=== PATIENT | female | born 1935 | race Caucasian/White ===

== ENCOUNTER 2018-06-02 10:46 | Day surgery (SDC) | payer OTHER ==
[2018-06-01 12:02] VITALS: BMI 26.1
[2018-06-02] MEDS ORDERED: LIDOCAINE VISCOUS 2% ORAL/TOP 20 ML UNIT-DOSE CUP ONE (12:11)
[2018-06-02 12:42] VITALS: TEMP 97.7
[2018-06-02 12:50] VITALS: PULSE 60
[2018-06-02 13:55] VITALS: BP 131/83
--- NOTE | 2018-06-02 14:03 | PROC ---
Cardioversion Risks and Benefits Explained: Yes Consent on Chart: Yes GILDA done prior to Cardioversion: Yes GILDA findings: No thrombus. Patient anticoagulated: Yes - Procedure Anesthesiologist present: Yes Medication given: propofol Joules delivered: 120 x1 Rhythm post cardioversion: sr Remarks: Pt tolerated procedure well, no complications.
--- NOTE | 2018-06-02 14:48 | EKG ---
Test Reason : Blood Pressure : / mmHG Vent. Rate : 070 BPM Atrial Rate : 070 BPM P-R Int : 110 ms QRS Dur : 142 ms QT Int : 498 ms P-R-T Axes : 179 -67 118 degrees QTc Int : 537 ms Atrial-sensed ventricular-paced rhythm ABNORMAL ECG WHEN COMPARED WITH ECG OF 03-SEP-2016 13:13, ELECTRONIC VENTRICULAR PACEMAKER HAS REPLACED SINUS RHYTHM Confirmed by ADWOA RUSHING, SIGIFREDO ([id number]) on 06/02/2018 2:48:03 PM Referred By: Scott Noble Confirmed By:SIGIFREDO ORONA MD
--- NOTE | 2018-06-15 13:16 | ECHO ---
Name: TROUBETZKOY, ANGELINA Exam:Transesophageal Echocardiogram Study Date: 06/02/2018 12:00 PM Age: 82 yrs Reason For Study: A-Fib Height: 66 in Weight: 160 lb BSA: 1.8 m2 Procedure: A 2D transesophageal echocardiogram with Doppler and color flow Doppler was performed. Informed conse nt for Transesophageal Echocardiogram, and use of a contrast agent as needed, was obtained prior to the proc edure. The patient was brought to the endoscopy suite in a fasting state. An intravenous line was placed. A topical anesthetic agent was used for oropharangeal anesthesia. A bite block was inserted. IV concious sedati on was administered using propafol. A multifrequency, multiplane transesopheageal echocardiographic endoscop e was inserted and manipulated in the standard fashion to achieve multiplane views. The transesophageal pro be was passed without difficulty. The usual views were obtained; basal, mid-esophageal, transgastric and aor tic views. The patient's vital signs, including blood pressure, heart rate, pulse oximetry and cardiac rh ythm were monitored throughout the procedure and remained stable. The patient tolerated the procedure well with out evidence of orophangeal or esophageal trauma. There were no complications. Left Ventricle The left ventricular size, thickness and function are normal. Right Ventricle The right ventricle is normal in size and function. There is a pacemaker lead in the right ventricle. Atria Normal left and right atrial size and function. No thrombus is detected in the left atrial appendage. There is a catheter/pacemaker lead seen in the right atrium. Mitral Valve There is moderate mitral regurgitation. Tricuspid Valve There is mild tricuspid regurgitation. Aortic Valve No hemodynamically significant valvular aortic stenosis. Mild aortic regurgitation. Pulmonic Valve There is no pulmonic valvular regurgitation. Great Vessels Normal aortic arch, descending and ascending aorta. Pericardium/Pluera There is no pericardial effusion. Interpretation Summary The left ventricular size, thickness and function are normal. The right ventricle is normal in size and function. There is a pacemaker lead in the right ventricle and atrium. There is moderate mitral regurgitation. There is mild tricuspid regurgitation. Mild aortic regurgitation. MD Scott Noble 06/15/2018 01:16 PM
== END 2018-06-02 13:55 | disposition home or self-care (01) ==
LOC: JOR 10:46 → JASU-ENDO 10:46
PROVIDERS: ATTEND Internal Medicine Cardiovascular Disease
PROC: 5A2204Z Restoration of Cardiac Rhythm, Single (ICD-10-PCS; 2018-06-02)
PROC: B246ZZ4 Ultrasonography of Right and Left Heart, Transesophageal (ICD-10-PCS; principal; 2018-06-02 11:45)
DX: I48.91 Unspecified atrial fibrillation (principal); I34.0 Nonrheumatic mitral (valve) insufficiency; Z95.0 Presence of cardiac pacemaker
CPT/HCPCS: 93005; 93010; 93312; 93325

== ENCOUNTER 2019-03-17 20:58 | Inpatient (IN) | payer OTHER ==
[2019-03-17 21:26] VITALS: BMI 25.8
[2019-03-17] MEDS ORDERED: SODIUM CHLORIDE 500 ML IV STA (21:54)
--- NOTE | 2019-03-17 21:54 | PDOC ---
History of Present Illness - General Chief Complaint: Injury Stated Complaint: FALL Time Seen by Provider: 03/17/19 21:27 History Source: Patient Exam Limitations: No Limitations - History of Present Illness Initial Comments: Luann Tiwari is an 83 yo F w a sig pmh of HTN, HLD, heart failure, CAD, and pacemaker who presents to the ER after she fell down onto her face. The patient was at a [employer] earlier today when she tripped on a small stair which she didn't see and faceplanted. She fell down onto her face, experienced a FOOSH injury of the right hand, landed on her right ribs and now has a significant amount of right rib pain, has right shoulder pain, scraped her right knee. The patient insists it was a mechanical fall and did not experience any LOC. She does take elliquis as a blood thinner for her A-Fib. She has experienced multiple episodes of nausea and 4 NBNB vomitting episodes since she arrived in the ED. EMS gave the patient 8 mg of morphine on route to the hospital. Patient was given 70 mcg of fentanyl, zofran, and offirmev in room 10 trauma bay. She arrived into the ER wearing a C-Collar. She has a laceration in her neck which is bleeding slowly. PCP: Dr. Pa Ku Hand Edger: Dr. Peña Allergies: amlodipine, olmesartan, quinine, codeine PSH: Lung resection/biopsy Social Hx: Former smoker 40+ years ago. Drinks recreationally. Denies illicit drug usage. Past History - Past Medical History Allergies/Adverse Reactions: Allergies Allergy/AdvReac Type Severity Reaction Status Date / Time amlodipine besylate Allergy Intermediate rash Verified 03/17/19 21:59 [From Tribenzor] olmesartan medoxomil Allergy Intermediate rash Verified 03/17/19 21:59 [From Tribenzor] quinine [Quinine] Allergy Verified 07/17/12 15:14 codeine AdvReac Verified 01/28/16 10:13 Home Medications: Ambulatory Orders Folic Acid 1 mg PO DAILY tablet 01/22/16 Apixaban [Eliquis] 5 mg PO BID 01/27/16 Glucosamine Sulfate Dipot Chlr [Glucosamine] 1,000 mg PO DAILY 01/28/16 Amiodarone HCl 100 mg PO DAILY tablet 12/28/16 Furosemide 40 mg PO BID tablet 12/28/16 Methotrexate Sodium [Methotrexate] 10 mg PO WEEKLY tablet 12/28/16 Metoprolol Succinate 75 mg PO BID 12/28/16 Nitroglycerin [Nitroglycerin Patch] 1 each TD DAILY 12/28/16 Pantoprazole Sodium 40 mg PO BID 12/28/16 Potassium Chloride 40 meq PO DAILY 12/28/16 Anemia: No Asthma: No Cancer: No Cardiac Disorders: Yes (ANGINA PECTORIS, AF) CVA: No COPD: No CHF: No Dementia: No Diabetes: No GI Disorders: Yes (PHYTOBEZOAR;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;OPIOID INDUCED GASTROPARESIS) Disorders: No HTN: Yes (EHB;PULMONARY HTN) Hypercholesterolemia: Yes Liver Disease: No Seizures: No Thyroid Disease: Yes - Surgical History Abdominal Surgery: No Appendectomy: No Cardiac Surgery: Yes (CARDIOVERSION) Cholecystectomy: No Lung Surgery: Yes (left lower lobectomy - BENIGN) Neurologic Surgery: No Orthopedic Surgery: No - Suicide/Smoking/Psychosocial Hx Smoking Status: No Smoking History: Never smoked Have you smoked in the past 12 months: No Number of Cigarettes Smoked Daily: 0 If you are a former smoker, when did you quit?: 23 YRS AGO Hx Alcohol Use: Yes (Socially) Drug/Substance Use Hx: No Substance Use Type: None Hx Substance Use Treatment: No Review of Systems - Review of Systems Able to Perform ROS?: Yes Comments:: CONSTITUTIONAL: Absent: fever, no chills, no fatigue EYES: Absent: visual changes ENT: Absent: ear pain, no sore throat CARDIOVASCULAR: Present: Chest pain Absent: no palpitations RESPIRATORY: Present: SOB Absent: cough GI: Present: Abdominal pain, nausea, vomiting Absent: no constipation, no diarrhea GENITOURINARY: Absent: dysuria, no frequency, no hematuria MUSKULOSKELETAL: Present: Back pain, arthralgia Absent: no myalgia SKIN: Absent: rash NEURO: Absent: headache *Physical Exam - Vital Signs Last Vital Signs Temp Pulse Resp BP Pulse Ox 97.7 F 60 18 161/75 95 03/17/19 21:17 03/17/19 21:17 03/17/19 21:17 03/17/19 21:03/17/19 21:20 - Physical Exam Comments: GENERAL: Patient is awake, alert and in moderate distress. Speech is clear and appropriate. HEAD: There is a 1 cm laceration right beow the chin. Patient has a bruise/hematoma on her right forehead. Multiple facial abrasians on her chin. HEENT: Pupils are equal round and reactive to light, extraocular movements are intact. No facial deformity. The forehead is tender around the bruise. The oropharynx is clear. NECK: The trachea is midline, there is no stridor. There is no midline cervical spine tenderness, full range of motion of neck. CHEST: The right ribs are very tender. No ecchymosis or abrasions. Equal chest wall expansion bilaterally. No flail segments. Lungs are clear to auscultation bilaterally. CARDIOVASCULAR: S1-S2, regular rate and rhythm. No murmurs or rubs. ABDOMEN: Soft, nontender, nondistended. Bowel sounds are normoactive. There is no abdominal or flank ecchymosis. BACK/PELVIS: There is no midline thoracic or lumbosacral spine tenderness or step-off. Pelvis is stable and nontender. EXTREMITIES: The right arm is extremely tender at the wrist and distal forearm. There appears to be multiple fractures. 2+ distal pulses throughout. The right shoulder is also mildly ttp but has full ROM. The right knee has an abrasion but no TTP. NEURO: Alert and oriented x3. Cranial nerves II through XII are intact. right arm strength limited secondary to pain. 5 out of 5 motor strength x3 extremities. No gross sensory deficits. SKIN: Multiple abrasions, 1 hematoma on forehead, 1 laceration on neck. PSYCH: Affect is appropriate Procedures - Laceration/Wound Repair Right Upper Neck Wound Length: to 2.5 cm Wound Explored: clean Wound's Depth, Shape: superficial Irrigated w/ Saline: Yes Betadine Prep: Yes Wound Debrided: minimal Wound Repaired With: Sutures Suture Size/Type: 5:0, proline Number of Sutures: 3 (simple sutures) Layer Closure: No Sterile Dressing Applied: Yes Splint Applied: No ED Treatment Course - LABORATORY CBC & Chemistry Diagram: 03/18/19 06:30 03/18/19 06:30 Medical Decision Making - Medical Decision Making Luann Tiwari is an 83 yo F w a sig pmh of HTN, HLD, heart failure, CAD, and pacemaker who presents to the ER after she fell down onto her face. The patient was at a [employer] earlier today when she tripped on a small stair which she didn't see and faceplanted. She fell down onto her face, experienced a FOOSH injury of the right hand, landed on her right ribs and now has a significant amount of right rib pain, has right shoulder pain, scraped her right knee. The patient insists it was a mechanical fall and did not experience any LOC. She does take elliquis as a blood thinner for her A-Fib. She has experienced multiple episodes of nausea and 4 NBNB vomitting episodes since she arrived in the ED. EMS gave the patient 8 mg of morphine on route to the hospital. Patient was given 70 mcg of fentanyl, zofran, and offirmev in room 10 trauma bay. She arrived into the ER wearing a C-Collar. She has a laceration in her neck which is bleeding slowly. Vital Signs Temp Pulse Resp BP Pulse Ox 97.7 F 60 18 161/75 95 03/17/19 21:17 03/17/19 21:17 03/17/19 21:17 03/17/19 21:17 03/17/19 21:20 Assessment: 83 yo F w cardiac co-morbidities presents after falling forward and experiencing multiple trauma. DDx IBNLT: Brain bleed, cervical fx, facial bone fx, pneumothorax, rib fracture , right arm fx, shoulder fx, hip fx, right knee injury, electrolyte/metabolic disturbance, heart failure, ACS/Mi Plan: Labs, urine, XR's, Novoa scan CT, EKG, analgesia, anti-emetics, re-assess. Neck Laceration: Stitched together with 3 simple sutures, sterille dressing applied. Head/neck CT: Unremarkable Facial CT: Shows nasal bone Fx Right arm XR - Comminuted distal radial and ulner fx Ortho consulted - Dr. Luz: Came and reduced arm as well as applied splint. - Repeat XR confirms proper alignment Signing out patient to Dr. Lewis to complete ED course, namely chest/abdomen/ pelvis CT with contrast and then admit patient to hospital. Chest/Abd/Pelv CT: No evidence of acute pathology. *DC/Admit/Observation/Transfer Diagnosis at time of Disposition: Hypokalemia, Elevated BUN, Elevated brain natriuretic peptide (BNP) level Fracture of distal radius and ulna Qualifiers: Encounter type: initial encounter Fracture type: closed Laterality: right Qualified Code(s): S52.501A - Unspecified fracture of the lower end of right radius, initial encounter for closed fracture Nasal bone fracture Qualifiers: Encounter type: initial encounter Fracture type: closed Qualified Code(s): S02.2XXA - Fracture of nasal bones, initial encounter for closed fracture Fall Qualifiers: Encounter type: initial encounter Qualified Code(s): W19.XXXA - Unspecified fall, initial encounter Chin laceration Qualifiers: Encounter type: initial encounter Qualified Code(s): S01.81XA - Laceration without foreign body of other part of head, initial encounter - Discharge Dispostion Condition at time of disposition: Stable - Referrals - Patient Instructions - Post Discharge Activity
[2019-03-17] MEDS ORDERED: ONDANSETRON 4 MG/2 ML VIAL IVPUSH ONE (21:58)
[2019-03-17] MEDS ORDERED: ACETAMINOPHEN 1000 MG/100 ML VIAL (NON FORMULARY) IVPB ONE (21:59)
[2019-03-17] MEDS ORDERED: ACETAMINOPHEN INJECTION 100 ML IVPB ONE (22:05)
[2019-03-17] MEDS ORDERED: ONDANSETRON 4 MG/2 ML VIAL ONE (22:05)
[2019-03-17 22:35] LABS: BASO % 0.6 % (0-2.0); EOS % 1.1 % (0-4.5); HEMATOCRIT 35.8 % (32.4-45.2); LYMPH % 13.6 % (8-40); MCH 31.1 pg (25.7-33.7); MCHC 33.5 g/dl (32.0-36.0); MEAN CELL VOLUME 92.7 fl (80-96); MEAN PLT VOLUME 8.3 fl (7.5-11.1); MONO % 6.5 % (3.8-10.2); NEUT % 78.2 % (42.8-82.8); PLATELET COUNT 197 K/MM3 (134-434); RBC 3.87 M/mm3 (3.60-5.2); RDW 14.9 % (11.6-15.6)
--- NOTE | 2019-03-17 22:44 | PDOC ---
Documentation entered by Marguerite Oakley SCRIBE, acting as scribe for Anabel Sutton MD. Anabel Sutton MD: This documentation has been prepared by the paulinaibe, Marguerite Oakley SCRIBE, under my direction and personally reviewed by me in its entirety. I confirm that the documentation accurately reflects all work, treatment, procedures, and medical decision making performed by me. Attending Attestation - Resident Resident Name: Luis Pichardo - ED Attending Attestation I have performed the following: I have examined & evaluated the patient, The case was reviewed & discussed with the resident, I agree w/resident's findings & plan, Exceptions are as noted - HPI HPI: 03/17/19 22:25 The patient is an 83-year-old female with a past medical history significant for Afib (on Eliquis), HTN, HLD presents to the emergency department via EMS s/ p a mechanical fall. The patient tripped over a step and fell forward, injuring her right side face, shoulder, arms, and knees. The patient reports associated symptoms of nausea and vomiting. Allergies: amlodipine besylate, olmesartan medoxomil, quinine, codeine Surgical History: left lower lobectomy. PCP: Dr. Woodrow Ku. Assistant To The President: Dr. Peña - Physicial Exam PE: 03/17/19 22:24 GENERAL: Awake, alert and oriented. The patient is in no acute distress. ENT: EOMI, swelling of nasal bridge, no blood at nares, abrasions on forehead, nasal bridge, Moist mucous membranes, chin laceration NECK: Normal range of motion, supple, non tendern midline, c collar replaced in the ER LUNGS: Breath sounds equal, clear to auscultation bilaterally. HEART: Regular rate and rhythm, normal S1 and S2 without murmur, rub or gallop. ABDOMEN: Soft, nontender, normoactive bowel sounds. No guarding, no rebound. EXTREMITIES: Normal range of motion, no edema. MUSCULOSKELETAL: right knee swelling and pain, abrasion Right forearm deformity, bruising, swelling and pain Right shoulder pain Right rib tenderness NEUROLOGICAL: Answering all questions. Cranial nerves II through XII grossly intact. Normal speech. No focal neurological deficits. SKIN: Multiple abrasions 03/17/19 22:38 - Medical Decision Making 03/17/19 22:42 83 yo F HTN, HLD, CAD,, Afib on Eliquis presenting s/p mechanical fall with head trauma Will do: Labs CT head, facial bones, C spine CT chest/Abd/pelvis with IV contrast Pain medications Boostrix Xrays right hand/forearm/shoulder 03/17/19 22:44 Laboratory Tests 03/17/19 22:25 WBC 8.0 Hgb 12.0 Hct 35.8 Plt Count 197 03/17/19 23:24 Laboratory Tests 03/17/19 03/17/19 03/17/19 22:25 22:25 22:25 PT with INR 15.90 H INR 1.34 H Sodium 134 L Potassium 3.4 L Chloride 97 L Carbon Dioxide 26 BUN 22.2 H Creatinine 1.2 Random Glucose 106 Lactic Acid 1.3 Creatine Kinase 105 Troponin I < 0.02 Head and C spine obtained 03/18/19 00:36 EKG - Paced at 60 bpm DIstal radius fracture Ortho consulted They are present in the ER for reduction and splinting Awaiting CT chest, abd, pelvis Pt signed out pending these studies Pt will be placed on observation given head trauma and DOAC Clinical Impression: Mechanical Fall with head trauma, initial presentation Distal radius fracture, initial presentation
[2019-03-17 22:46] LABS: INR 1.34 (0.83-1.09); PROTHROMBIN TIME (PATIENT) 15.9 SEC (9.7-13.0)
[2019-03-17 22:49] LABS: ACTIVATED PTT 32.1 SECONDS (25.2-36.5)
[2019-03-17 23:08] LABS: ALBUMIN 3.2 g/dl (3.4-5.0); ALK PHOS 86 U/L (45-117); ANION GAP 11 MMOL/L (8-16); BILIRUBIN,TOTAL 1.1 mg/dL (0.2-1); BLOOD UREA NITROGEN 22.2 mg/dL (7-18); CALCIUM 7.5 mg/dL (8.5-10.1); CHLORIDE 97 mmol/L (98-107); CO2 26 mmol/L (21-32); CREATININE 1.2 mg/dL (0.55-1.3); GLUCOSE,RANDOM 106 mg/dL (74-106); MAGNESIUM 1.9 mg/dL (1.8-2.4); N-TERMINAL BNP 614.1 pg/ml (5-450); POTASSIUM 3.4 mmol/L (3.5-5.1); SGOT/AST 23 U/L (15-37); SGPT/ALT 23 U/L (13-61); SODIUM 134 mmol/L (136-145)
[2019-03-18] MEDS ORDERED: POTASSIUM CHLORIDE ORAL LIQUID 20 MEQ/15 ML PO ONE (00:12)
[2019-03-18] MEDS ORDERED: HYDROmorphone HCL CARPU-JECT 2 MG/1 ML DISP.SYRIN IVPUSH ONE (00:38)
[2019-03-18] MEDS ORDERED: METOCLOPRAMIDE HCL INJECTION 10 MG/2 ML VIAL IVPUSH ONE (00:38)
[2019-03-18] MEDS ORDERED: POTASSIUM CHLORIDE ORAL LIQUID 20 MEQ/15 ML ONE (00:43)
[2019-03-18] MEDS ORDERED: HYDROmorphone HCl 2 MG/ML VIAL ONE (00:43)
[2019-03-18] MEDS ORDERED: METOCLOPRAMIDE HCL INJECTION 10 MG/2 ML VIAL ONE (00:43)
--- NOTE | 2019-03-18 02:06 | CONSULT ---
Consult - text type - Consultation Consultation Note: ORTHOPEDIC SURGERY CONSULTATION NOTE Department of Orthopedic Surgery HISTORY OF PRESENT ILLNESS Luann Tiwari is an 83 year old right hand dominant female who presents to [facility] ED after a mechanical fall. She has a past medical history significant for hypertension, heart failue, CAD, atrial fibrillation (on Elliquis) and pacemaker. The orthopedic service was consulted for a right distal radius fracture. The injury occurred today. She denies any head trauma or LOC. The patient notes pain at the distal aspect of the wrist and right side of her ribs. She also complained earlier of right knee and right shoulder pain, however they improved since being in the hospital. There is no radiation of her pain. Denies any other pain. Denies numbness, tingling or other constitutional complaints. The patient is retired. Denies tobacco use, drug use, alcohol abuse. The patient lives with family and uses no assistive devices at baseline. FAMILY HISTORY Reviewed and noncontributory. REVIEW OF SYMPTOMS A twelve-point review of systems was performed and was negative except as noted in HPI. PHYSICAL EXAM Constitutional: Alert and oriented to person, place, and time. Appears well- developed and well-nourished. No acute distress, appropriate mood and affect. Right Upper Extremity: Right wrist swelling and deformity. Small skin abrasions on the fingers. Skin warm, dry, and intact; no lesions, rashes or ulcers noted. Muscle mass equal and symmetric to contralateral side. No atrophy noted. No masses or effusions noted. Tender to palpation at the wrist; nontender throughout rest of extremity. Joints stable with no pathologic laxity. M/R/U/MSK/AX motor intact; SILT distally; 2+ radial pulses; Cap refill brisk. Tone and reflexes normal. Left Upper Extremity: Skin warm, dry, and intact; no lesions, rashes or ulcers noted. Muscle mass equal and symmetric to contralateral side. No atrophy noted. No masses or effusions noted. No tenderness to palpation. Full passive and active ROM, free from pain. Joints stable with no pathologic laxity. M/R/U/MSK/ AX motor intact; SILT distally; 2+ radial pulses; Cap refill brisk. Tone and reflexes normal. Right Lower Extremity: Skin abrasion on lateral aspect of right knee. Skin otherwise warm, dry, and intact; no lesions, rashes or ulcers noted. Muscle mass equal and symmetric to contralateral side. No atrophy noted. No masses or effusions noted. No tenderness to palpation. No cords or calf tenderness No significant calf/ankle edema. Full passive and active ROM, free from pain. Joints stable with no pathologic laxity. EHL/TA/GS motor intact; SILT distally; 2+ DP pulses; Cap refill brisk. Tone and reflexes normal. Left Lower Extremity: Skin warm, dry, and intact; no lesions, rashes or ulcers noted. Muscle mass equal and symmetric to contralateral side. No atrophy noted. No masses or effusions noted. No tenderness to palpation. No cords or calf tenderness No significant calf/ankle edema. Full passive and active ROM, free from pain. Joints stable with no pathologic laxity. EHL/TA/GS motor intact; SILT distally; 2+ DP pulses; Cap refill brisk. Tone and reflexes normal. Social History Smoking history Never smoked Aproximately how many 0 cigarettes per day If you are a former smoker, 23 YRS AGO when did you quit? Hx Alcohol Use Yes: Socially Allergies Allergy/AdvReac Type Severity Reaction Status Date / Time amlodipine besylate Allergy Intermediate rash Verified 03/17/19 21:59 [From Tribenzor] olmesartan medoxomil Allergy Intermediate rash Verified 03/17/19 21:59 [From Tribenzor] quinine [Quinine] Allergy Verified 07/17/12 15:14 codeine AdvReac Verified 01/28/16 10:13 Vital Signs (last) Temp Pulse Resp BP Pulse Ox 97.7 F 60 18 161/75 95 03/17/19 21:17 03/17/19 21:17 03/17/19 21:17 03/17/19 21:17 03/17/19 21:20 Intake and Output 03/16/19 03/17/19 03/18/19 23:59 23:59 23:59 Other: Weight 160 lb Height 5 ft 6 in Body Mass Index (BMI) 25.8 Weight Measurement Method Est/Stated by Patient Laboratory 03/17/19 22:25 03/17/19 22:25 PT with INR 15.90 SEC (9.7-13.0) H 03/17/19 22:25 PTT (Actin FS) 32.1 SECONDS (25.2-36.5) 03/17/19 22:25 IMAGING I personally reviewed all radiographs. Right wrist radiographs demonstrate a displaced and comminuted intraarticular distal radius fracture. Radiographs of the right shoulder demonstrate a glenohumeral and AC joint arthritis with no fracture or dislocation; there are calcifications within the humeral neck. Radiographs of the right knee show degenerative changes with no fracture or dislocation. ASSESSMENT AND PLAN Luann Tiwari is an 83 year old right hand dominant female presenting status post mechanical fall with a right sided closed distal radius fracture and possible right sided rib fractures. We have reviewed the imaging and clinical findings in detail, as well as their potential implications. After appropriate informed discussion, a closed reduction was performed and the patient was placed in a well-padded splint. - No surgical intervention at this time - FU CT Chest - FU CT Cervical Spine - Pain control; minimize narcotic use - Encourage incentive spirometry - DVT prophylaxis - Decubitus precautions (heel/sacrum) - NWB RUE - Ice and elevate right wrist - Keep splint clean and dry - Avoid NSAIDs Procedure Note for Closed Reduction of Right Distal Radius Fracture After informed consent, a hematoma block was performed using 8mL of 1% lidocaine. A closed reduction was then performed using ligamentotaxis by bringing the distal aspect of the fracture fragment in line with the proximal radius. After reduction, the patient was placed in a well padded sugartong splint. Post reduction radiographs showed reduction of the fracture with adequate alignment. All questions were answered. Thank you for involving our team in the care of this patient. Please have patient follow up in our office in 1 week .
--- NOTE | 2019-03-18 02:48 | PDOC ---
*Physical Exam - Vital Signs Last Vital Signs Temp Pulse Resp BP Pulse Ox 97.7 F 60 18 161/75 95 03/17/19 21:17 03/17/19 21:17 03/17/19 21:17 03/17/19 21:17 03/17/19 21:20 ED Treatment Course - LABORATORY CBC & Chemistry Diagram: 03/17/19 22:25 03/17/19 22:25 - ADDITIONAL ORDERS Additional order review: Laboratory Results 03/17/19 03/17/19 03/17/19 22:25 22:25 22:25 PT with INR INR PTT (Actin FS) Sodium 134 L Potassium 3.4 L Chloride 97 L Carbon Dioxide 26 Anion Gap 11 BUN 22.2 H Creatinine 1.2 Est GFR (CKD-EPI)AfAm 48.06 Est GFR (CKD-EPI)NonAf 41.47 Random Glucose 106 Lactic Acid 1.3 Calcium 7.5 L Magnesium 1.9 Total Bilirubin 1.1 H AST 23 ALT 23 Alkaline Phosphatase 86 Creatine Kinase 105 Troponin I < 0.02 B-Natriuretic Peptide 614.1 H Total Protein 6.0 L Albumin 3.2 L Blood Type A POSITIVE Antibody Screen Negative 03/17/19 22:25 PT with INR 15.90 H INR 1.34 H PTT (Actin FS) 32.1 Sodium Potassium Chloride Carbon Dioxide Anion Gap BUN Creatinine Est GFR (CKD-EPI)AfAm Est GFR (CKD-EPI)NonAf Random Glucose Lactic Acid Calcium Magnesium Total Bilirubin AST ALT Alkaline Phosphatase Creatine Kinase Troponin I B-Natriuretic Peptide Total Protein Albumin Blood Type Antibody Screen 03/17/19 22:25 RBC 3.87 MCV 92.7 MCHC 33.5 RDW 14.9 MPV 8.3 Neutrophils % 78.2 D Lymphocytes % 13.6 D Monocytes % 6.5 Eosinophils % 1.1 Basophils % 0.6 - Medications Given in the ED: ED Medications Discontinued Medications Generic Name Dose Route Start Last Admin Trade Name Freq PRN Reason Stop Dose Admin Acetaminophen 1,000 mg 03/17/19 21:59 03/17/19 22:34 Ofirmev Injection - IVPB 03/17/19 22:00 1,000 mg ONCE ONE Administration Fentanyl 70 mcg 03/17/19 21:58 03/17/19 22:34 Sublimaze Injection - IVPUSH 03/17/19 21:59 70 mcg ONCE ONE Administration Hydromorphone HCl 0.5 mg 03/18/19 00:38 03/18/19 00:52 Dilaudid Injection - IVPUSH 03/18/19 00:39 0.5 mg ONCE ONE Administration Sodium Chloride 500 mls @ 500 mls/hr 03/17/19 21:54 03/17/19 22:35 Normal Saline - IV 03/17/19 22:53 Not Given ASDIR STA Metoclopramide HCl 10 mg 03/18/19 00:38 03/18/19 00:52 Reglan Injection - IVPUSH 03/18/19 00:39 10 mg ONCE ONE Administration Ondansetron HCl 4 mg 03/17/19 21:58 03/17/19 22:34 Zofran Injection IVPUSH 03/17/19 21:59 4 mg ONCE ONE Administration Potassium Chloride 40 meq 03/18/19 00:12 03/18/19 00:52 Potassium Chloride Oral Liquid PO 03/18/19 00:13 40 meq ONCE ONE Administration Medical Decision Making - Medical Decision Making 03/18/19 04:36 Patient Name: ANGELINA WHEELER THIS IS A PRELIMINARY REPORT FROM [facility] DATE OF SERVICE: 2019-03-18 02:20:49 IMAGES: [id number] EXAM: CT chest, abdomen and pelvis with contrast HISTORY: Trauma COMPARISON: None. FINDINGS: CT chest:There is no aortic dissection or aneurysm. No mediastinal hematoma. The main pulmonary arteries mildly dilated 3.3 cm which could indicate pulmonary arterial hypertension. There is no significant mediastinal or hilar adenopathy. The heart size is normal. Left-sided pacemaker and leads are noted. The trachea and bronchi are patent. There is no pleural or pericardial effusion. There is a 9 mm right upper lobe subpleural nodule. There is a questionable 13 mm nodule in the left upper lobe that this could represent focal atelectasis or scarring. The left lower lobe sutures with mild left lower lobe atelectasis and/ or scarring. No evidence of pulmonary contusion or pneumothorax. No acute fractures. There are old compression fractures of T7 and T11 without retropulsion. CT abdomen and pelvis: Tiny liver hypodensities too small to characterize, but may be cysts. Normal gallbladder, pancreas, spleen, adrenal glands and kidneys other than a large right renal cyst. A small hiatal hernia is noted. The abdominal small and large bowel are normal. There is no aortic aneurysm. There is no significant retroperitoneal lymphadenopathy. No retroperitoneal hematoma or mesenteric edema. The pelvic small and large bowel are normal. There is no evidence of appendicitis. The uterus and adnexal structures are notable only for tiny calcified fibroids.. Urinary bladder is unremarkable. There is no pelvic free fluid. No discrete pelvic lymphadenopathy is identified. IMPRESSION: Possible pulmonary arterial hypertension. 9 mm right upper lobe subpleural nodule. Questionable 13 mm left lower lobe nodule, possibly representing atelectasis or scarring. Recommend comparison with prior exams to ensure stability and possible follow- up with PET/CT as clinically indicated. Tiny fibroids. No evidence of acute traumatic pathology in the abdomen or pelvis. 03/18/19 04:37 Pt will be admitted for lightheaded and fall and nasal fracture after face/head injury. *DC/Admit/Observation/Transfer Diagnosis at time of Disposition: Hypokalemia, Elevated BUN, Elevated brain natriuretic peptide (BNP) level Fracture of distal radius and ulna Qualifiers: Encounter type: initial encounter Fracture type: closed Laterality: right Qualified Code(s): S52.501A - Unspecified fracture of the lower end of right radius, initial encounter for closed fracture Nasal bone fracture Qualifiers: Encounter type: initial encounter Fracture type: closed Qualified Code(s): S02.2XXA - Fracture of nasal bones, initial encounter for closed fracture Fall Qualifiers: Encounter type: initial encounter Qualified Code(s): W19.XXXA - Unspecified fall, initial encounter Chin laceration Qualifiers: Encounter type: initial encounter Qualified Code(s): S01.81XA - Laceration without foreign body of other part of head, initial encounter - Referrals - Patient Instructions - Post Discharge Activity
[2019-03-18] MEDS ORDERED: ACETAMINOPHEN 325 MG TABLET (FP) PO PRN (04:48)
--- NOTE | 2019-03-18 06:29 | HP ---
<Walter Krishnamurthy - Last Filed: 03/18/19 13:21> Please see my note/DCS for further information; briefly, she sustained mechanical fall while on eliquis. No neuro chanfges observed, negative head CT , no epistaxis, no continued bleeding or severe hematomas. She is afebrile and hemodynamically stable. Initial elyte abnormalities 2/2 mso4 induced vomiting and have resolved. She is pain-free and denies pain requiring continued narcotics and was agreeable to APAP use and prompt followup with primary care, ENT, and orthopedics. She is mentating well, exhibits no presyncopal sx, etc. She had a negative CT for rib fractures -Discussed with Dr. Luz; NWB and pain control. No issues with deep inspiration and no rib fractures so no need fo incentive elena but can fu with PCP if needed -Discussed with ENT; nonurgent nasal fx with no epistaxis throughout ER stay. Followup with final imaging report with PCP and ensure followup with ENT within 1-2 weeks. Referral given. Resident of record counseled patient and she verbalized understadning and is agreeable to DC. Per ortho she may resume her eliquis. No injuries are operative and no neuro deficits or bleed noted as stated PCP 2-3 days Ortho 1-2 weeks ENT 1-2 weeks APAP for pain given control and lack of tolerance of opiates. FU with PCP if more is needed but was controlled well after MSO4 would have worn off. Geriatric limits should be noted. Thank you to the help of the consultants in the management of this patient. ATTENDING PHYSICIAN STATEMENT I saw and evaluated the patient. I reviewed the resident's note and discussed the case with the resident. I agree with the resident's findings and plan as documented. SUBJECTIVE: OBJECTIVE: ASSESSMENT AND PLAN: <Mariya Eisenberg - Last Filed: 03/19/19 07:35> CHIEF COMPLAINT:right wrise PCP:Dr. Ku HISTORY OF PRESENT ILLNESS: Patient is an 83 year old female with past medical history of HTN, HLD, Heart failure, CAD and pacemaker, presented to the ED after she fell flat on her face with right arm outstretched. Patient denies any dizziness or loss of consciousness before she fell, and states that she missed a stair step and fell. EMS was immediately called. En route to the hospital patient received Morphine 8mg, and on the ED had nausea and multiple episodes of NBNB vomiting. She received Fentanyl, Zofran, and Tylenol. Several CT scans were done to evaluate for bleeding and fracture, and patient was found to have right sided closed distal radius fracture. Orthopedic was called in and a closed reduction was performed and patient was placed in a well padded splint. Recent Travel:denies PAST MEDICAL HISTORY: HTN HLD Heart failure CAD PAST SURGICAL HISTORY: Pacemaker placement Social History: Smoking:previous smoker, quit >10 years Alcohol:occasional Drugs: denies Family History: noncontributory Allergies amlodipine besylate [From Tribenzor] Allergy (Intermediate, Verified 03/17/19 21 :59) rash olmesartan medoxomil [From Tribenzor] Allergy (Intermediate, Verified 03/17/19 21:59) rash quinine [Quinine] Allergy (Verified 07/17/12 15:14) codeine Adverse Reaction (Verified 01/28/16 10:13) HOME MEDICATIONS: Home Medications Medication Instructions Recorded Folic Acid 1 mg PO DAILY tablet 01/22/16 Apixaban [Eliquis] 5 mg PO BID 01/27/16 Glucosamine Sulfate Dipot Chlr 1,000 mg PO DAILY 01/28/16 [Glucosamine] Amiodarone HCl 100 mg PO DAILY tablet 12/28/16 Furosemide 40 mg PO BID tablet 12/28/16 Methotrexate Sodium [Methotrexate] 10 mg PO WEEKLY tablet 12/28/16 Metoprolol Succinate 75 mg PO BID 12/28/16 Nitroglycerin [Nitroglycerin Patch] 1 each TD DAILY 12/28/16 Pantoprazole Sodium 40 mg PO BID 12/28/16 Potassium Chloride 40 meq PO DAILY 12/28/16 REVIEW OF SYSTEMS CONSTITUTIONAL: Absent: fever, chills, diaphoresis, generalized weakness, malaise, loss of appetite, weight change HEENT: Absent: rhinorrhea, nasal congestion, throat pain, throat swelling, difficulty swallowing, mouth swelling, ear pain, eye pain, visual changes CARDIOVASCULAR: Absent: chest pain, syncope, palpitations, irregular heart rate, lightheadedness , peripheral edema RESPIRATORY: Absent: cough, shortness of breath, dyspnea with exertion, orthopnea, wheezing, stridor, hemoptysis GASTROINTESTINAL: Absent: abdominal pain, abdominal distension, nausea, vomiting, diarrhea, constipation, melena, hematochezia GENITOURINARY: Absent: dysuria, frequency, urgency, hesitancy, hematuria, flank pain, genital pain MUSCULOSKELETAL: Absent: myalgia, arthralgia, joint swelling, back pain, neck pain SKIN: Absent: rash, itching, pallor HEMATOLOGIC/IMMUNOLOGIC: Absent: easy bleeding, easy bruising, lymphadenopathy, frequent infections ENDOCRINE: Absent: unexplained weight gain, unexplained weight loss, heat intolerance, cold intolerance NEUROLOGIC: Absent: headache, focal weakness or paresthesias, dizziness, unsteady gait, seizure, mental status changes, bladder or bowel incontinence PSYCHIATRIC: Absent: anxiety, depression, suicidal or homicidal ideation, hallucinations. PHYSICAL EXAMINATION Vital Signs - 24 hr 03/17/19 03/17/19 21:17 21:20 Temperature 97.7 F Pulse Rate 60 Respiratory 18 Rate Blood Pressure 161/75 O2 Sat by Pulse 95 95 Oximetry (%) GENERAL: Awake, alert, and fully oriented, in no acute distress. HEAD: +ecchymosis on the chin EYES: PERRLA, EOMI, sclera anicteric, conjunctiva clear. EARS, NOSE, THROAT:Moist mucous membranes. NECK: Normal range of motion, supple. LUNGS: Breath sounds equal, clear to auscultation bilaterally. HEART: Regular rate and rhythm, normal S1 and S2 without murmur, rub or gallop. ABDOMEN: Soft, nontender, not distended, normoactive bowel sounds. MUSCULOSKELETAL: Right arm splint in place, dressing clean,dry, intact LOWER EXTREMITIES: 2+ pulses, warm, well-perfused. No peripheral edema. NEUROLOGICAL: Cranial nerves II-XII intact. Normal speech. Gait not observed. PSYCHIATRIC: Cooperative. Good eye contact. Appropriate mood and affect. SKIN: Warm, dry, normal turgor, no rashes or lesions noted. Laboratory Results - last 24 hr 03/17/19 03/17/19 03/17/19 22:25 22:25 22:25 WBC 8.0 RBC 3.87 Hgb 12.0 Hct 35.8 MCV 92.7 MCH 31.1 MCHC 33.5 RDW 14.9 Plt Count 197 MPV 8.3 Absolute Neuts (auto) 6.3 Neutrophils % 78.2 D Lymphocytes % 13.6 D Monocytes % 6.5 Eosinophils % 1.1 Basophils % 0.6 Nucleated RBC % 0 PT with INR 15.90 H INR 1.34 H PTT (Actin FS) 32.1 Sodium 134 L Potassium 3.4 L Chloride 97 L Carbon Dioxide 26 Anion Gap 11 BUN 22.2 H Creatinine 1.2 Est GFR (CKD-EPI)AfAm 48.06 Est GFR (CKD-EPI)NonAf 41.47 Random Glucose 106 Lactic Acid Calcium 7.5 L Magnesium 1.9 Total Bilirubin 1.1 H AST 23 ALT 23 Alkaline Phosphatase 86 Creatine Kinase 105 Troponin I < 0.02 B-Natriuretic Peptide 614.1 H Total Protein 6.0 L Albumin 3.2 L Blood Type Antibody Screen 03/17/19 03/17/19 22:25 22:25 WBC RBC Hgb Hct MCV MCH MCHC RDW Plt Count MPV Absolute Neuts (auto) Neutrophils % Lymphocytes % Monocytes % Eosinophils % Basophils % Nucleated RBC % PT with INR INR PTT (Actin FS) Sodium Potassium Chloride Carbon Dioxide Anion Gap BUN Creatinine Est GFR (CKD-EPI)AfAm Est GFR (CKD-EPI)NonAf Random Glucose Lactic Acid 1.3 Calcium Magnesium Total Bilirubin AST ALT Alkaline Phosphatase Creatine Kinase Troponin I B-Natriuretic Peptide Total Protein Albumin Blood Type A POSITIVE Antibody Screen Negative ASSESSMENT/PLAN: Patient is an 83 year old female with past medical history of HTN, HLD, Heart failure, CAD and pacemaker, presented to the ED after she fell flat on her face with right arm outstretched and was found to have a nasal fracture and Right closed distal radius fracture. #Right close distal radius fracture -s/p closed reduction -Ortho (Dr. Luz) consulted. REcommendations appreciated. -no surgical intervention indicated at this time -CT Chest and cervical spine done, initial read showed no fracture -Pain control with TYlenol, minimize narcotic use -Incentive spirometry -Decubitus precautions (heel/sacrum) -no weight bearing of RUE -Ice and elevate right wrist -Keep splint clean and dry -Avoid NSAIDS #Nasal fracture -To follow with ENT as outpatient #FEN -Not on any standing fluids -Hypokalemia, repleted -Routine bmp monitoring -Sodium restricted diet #Prophylaxis -Eliquis 5mg po bid #Disposition -med-surg -for likely discharge today, cleared by ortho Visit type - Emergency Visit Emergency Visit: Yes ED Registration Date: 03/18/19 Care time: The patient presented to the Emergency Department on the above date and was hospitalized for further evaluation of their emergent condition. - New Patient This patient is new to me today: Yes Date on this admission: 03/19/19 - Critical Care Critical Care patient: No ATTENDING PHYSICIAN STATEMENT I saw and evaluated the patient. I reviewed the resident's note and discussed the case with the resident. I agree with the resident's findings and plan as documented. SUBJECTIVE: OBJECTIVE: ASSESSMENT AND PLAN:
[2019-03-18] MEDS ORDERED: LEVOTHYROXINE NA 25 MCG TABLET (FP) ONE (06:39)
[2019-03-18] MEDS ORDERED: LEVOTHYROXINE NA 50 MCG TABLET (FP) PO SCH (07:00)
[2019-03-18 07:10] LABS: BASO % 0.4 % (0-2.0); EOS % 0.2 % (0-4.5); HEMATOCRIT 33.9 % (32.4-45.2); HEMOGLOBIN 11.3 GM/dL (10.7-15.3); MCH 31.4 pg (25.7-33.7); MCHC 33.4 g/dl (32.0-36.0); MEAN CELL VOLUME 93.9 fl (80-96); MEAN PLT VOLUME 8.3 fl (7.5-11.1); MONO % 8.1 % (3.8-10.2); NEUT % 77.3 % (42.8-82.8); PLATELET COUNT 180 K/MM3 (134-434); RBC 3.61 M/mm3 (3.60-5.2); RDW 14.9 % (11.6-15.6); WHITE BLOOD COUNT 7.2 K/mm3 (4.0-10.0)
[2019-03-18 07:47] LABS: ALBUMIN 3.1 g/dl (3.4-5.0); BILIRUBIN,TOTAL 1.2 mg/dL (0.2-1); BLOOD UREA NITROGEN 18.6 mg/dL (7-18); CREATININE 1.1 mg/dL (0.55-1.3); MAGNESIUM 2.1 mg/dL (1.8-2.4); POTASSIUM 4.2 mmol/L (3.5-5.1); TOT PROT 5.6 g/dl (6.4-8.2)
[2019-03-18] MEDS ORDERED: METHOTREXATE 2.5 MG TABLET PO SCH (08:30)
--- NOTE | 2019-03-18 08:30 | PN ---
Teaching Attending Note Name of Resident: Mariya Eisenberg ATTENDING PHYSICIAN STATEMENT I saw and evaluated the patient. I reviewed the resident's note and discussed the case with the resident. I agree with the resident's findings and plan as documented. SUBJECTIVE: OBJECTIVE: ASSESSMENT AND PLAN:
--- NOTE | 2019-03-18 08:38 | EKG ---
Test Reason : Blood Pressure : / mmHG Vent. Rate : 060 BPM Atrial Rate : 062 BPM P-R Int : 336 ms QRS Dur : 104 ms QT Int : 698 ms P-R-T Axes : 168 -42 151 degrees QTc Int : 698 ms AV dual-paced rhythm with prolonged AV conduction ABNORMAL ECG WHEN COMPARED WITH ECG OF 02-JUN-2018 12:39, VENT. RATE HAS DECREASED BY 10 BPM Confirmed by ADWOA RUSHING, SIGIFREDO ([id number]) on 03/18/2019 8:38:11 AM Referred By: Confirmed By:SIGIFREDO ORONA MD
[2019-03-18] MEDS ORDERED: FUROSEMIDE 40 MG TABLET (FP) PO SCH (09:15)
[2019-03-18] MEDS ORDERED: APIXABAN 5 MG TABLET PO SCH (10:00)
[2019-03-18] MEDS ORDERED: PATIENT'S OWN MEDICATION (NON-FORMULARY) (Glucosamine Sulfate Dipot Chlr [Glucosamine] 1,0 PO SCH (10:00)
[2019-03-18] MEDS ORDERED: FOLIC ACID 1 MG TABLET (FP) PO SCH (10:00)
[2019-03-18] MEDS ORDERED: PANTOPRAZOLE 40 MG TABLET (FP) PO SCH (10:00)
[2019-03-18] MEDS ORDERED: METOPROLOL SUCCINATE 50 MG, METOPROLOL SUCCINATE 25 MG PO SCH (10:00)
[2019-03-18] MEDS ORDERED: AMIODARONE HCL 200 MG TABLET (FP) PO SCH (10:00)
[2019-03-18] MEDS ORDERED: FUROSEMIDE 40 MG TABLET (FP) ONE (10:25)
[2019-03-18] MEDS ORDERED: AMIODARONE HCL 200 MG TABLET (FP) ONE (10:26)
[2019-03-18 10:57] VITALS: BP 111/54; PULSE 62; TEMP 98.3
[2019-03-18] MEDS ORDERED: ATORVASTATIN CA 10 MG TABLET (FP) PO SCH (22:00)
--- NOTE | 2019-03-19 07:23 | DS ---
Physical Exam: SUBJECTIVE: Patient seen and examined OBJECTIVE: Vital Signs Period Temp Pulse Resp BP Sys/Roberts Pulse Ox Last 24 Hr 98.3 F 62 18 111/54 PHYSICAL EXAM GENERAL: Awake, alert, and fully oriented, in no acute distress. HEAD: +ecchymosis on the chin EYES: PERRLA, EOMI, sclera anicteric, conjunctiva clear. EARS, NOSE, THROAT:Moist mucous membranes. NECK: Normal range of motion, supple. LUNGS: Breath sounds equal, clear to auscultation bilaterally. HEART: Regular rate and rhythm, normal S1 and S2 without murmur, rub or gallop. ABDOMEN: Soft, nontender, not distended, normoactive bowel sounds. MUSCULOSKELETAL: Right arm splint in place, dressing clean,dry, intact LOWER EXTREMITIES: 2+ pulses, warm, well-perfused. No peripheral edema. NEUROLOGICAL: Cranial nerves II-XII intact. Normal speech. Gait not observed. PSYCHIATRIC: Cooperative. Good eye contact. Appropriate mood and affect. SKIN: Warm, dry, normal turgor, no rashes or lesions noted. LABS Laboratory Results - last 24 hr 03/17/19 03/18/19 03/18/19 09:25 06:30 06:30 WBC 7.2 RBC 3.61 Hgb 11.3 Hct 33.9 MCV 93.9 MCH 31.4 MCHC 33.4 RDW 14.9 Plt Count 180 MPV 8.3 Absolute Neuts (auto) 5.6 Neutrophils % 77.3 Lymphocytes % 14.0 Monocytes % 8.1 Eosinophils % 0.2 D Basophils % 0.4 Nucleated RBC % 0 Sodium 142 Potassium 4.2 Chloride 107 Carbon Dioxide 28 Anion Gap 7 L BUN 18.6 H Creatinine 1.1 Est GFR (CKD-EPI)AfAm 53.39 Est GFR (CKD-EPI)NonAf 46.07 Random Glucose 128 H Calcium 8.0 L Magnesium 2.1 Total Bilirubin 1.2 H AST 21 ALT 20 Alkaline Phosphatase 83 Total Protein 5.6 L Albumin 3.1 L TSH 4.01 H Blood Type A POSITIVE HOSPITAL COURSE: Date of Admission:03/18/19 Date of Discharge: 03/19/19 Patient is an 83 year old female with past medical history of HTN, HLD, Heart failure, CAD and pacemaker, presented to the ED after she fell flat on her face with right arm outstretched. Several CT scans were done to evaluate for bleeding and fracture, and patient was found to have right sided closed distal radius fracture. Orthopedic was called in and a closed reduction was performed and patient was placed in a well padded splint. CT scan also showed a nasal fracture. Patient was discharged with instructions to follow up with ortho and ENT. Minutes to complete discharge: 36 Discharge Summary Reason For Visit: FRACTURE OF NASAL BONE,FRACTURE OF DISTAL END OF Condition: Stable - Instructions Diet, Activity, Other Instructions: Your visit You were admitted to the hospital because you had a wrist fracture from a fall. The orthopedic surgeon (bone doctor) did a closed reduction on the fracture, and does not recommend any surgical intervention at this time. Please keep the arm immobilized with the splint and keep dressing clean and dry at all times. Avoid weight bearing on the affected arm. Keep right arm elevated and apply ice on affected area. CAT scan was also done of head, face, and chest to rule out any fractures and bleeding. You were found to have a nasal fracture that should be evaluated by the ENT doctor. Please call Dr. Hylton's office to schedule an appointment. Medications Please continue your home medications as prescribed. You may take Tylenol as needed for pain. Avoid NSAIDs such as ibuprofen, motrin. Follow up Please follow up with the orthopedic surgeon (Dr. Luz) in 1 week. Please call his office to schedule an appointment. Please follow up with the ENT (Dr. Hylton) within 1-2 weeks for the nasal fracture. Please follow up with your primary care doctor, Dr. Ku within 1 week. Additional info Please call 911 or go to the ED if with any worsening fever, chills, headache, dizziness, chest pain, SOB, belly pain, urinary symptoms or any new concerns noted. Referrals: Pa Ku MD [Primary Care Provider] - 1 Week Scott Luz DO [Staff Physician] - 1 Week Gee Hylton MD [Staff Physician] - 1 Week Disposition: HOME - Home Medications Comprehensive Discharge Medication List: Ambulatory Orders Folic Acid 1 mg PO DAILY tablet 01/22/16 Apixaban [Eliquis] 5 mg PO BID 01/27/16 Glucosamine Sulfate Dipot Chlr [Glucosamine] 1,000 mg PO DAILY 01/28/16 Amiodarone HCl 100 mg PO DAILY tablet 12/28/16 Furosemide 40 mg PO BID tablet 12/28/16 Methotrexate Sodium [Methotrexate] 10 mg PO WEEKLY tablet 12/28/16 Metoprolol Succinate 75 mg PO BID 12/28/16 Nitroglycerin [Nitroglycerin Patch] 1 each TD DAILY 12/28/16 Pantoprazole Sodium 40 mg PO BID 12/28/16 Potassium Chloride 40 meq PO DAILY 12/28/16 This patient is new to me today: Yes Date on this admission: 03/19/19 Emergency Visit: Yes ED Registration Date: 03/18/19 Care time: The patient presented to the Emergency Department on the above date and was hospitalized for further evaluation of their emergent condition. Critical Care patient: No - Discharge Referral Referred to [facility] No ATTENDING PHYSICIAN STATEMENT I saw and evaluated the patient. I reviewed the resident's note and discussed the case with the resident. I agree with the resident's findings and plan as documented. SUBJECTIVE: OBJECTIVE: ASSESSMENT AND PLAN:
== END 2019-03-18 11:10 | disposition home or self-care (01) | DRG 563 ==
LOC: JER 20:58 → JERBED 03-18 03:52
PROVIDERS: ADMIT Internal Medicine; ATTEND Internal Medicine
PROC: 0PSHXZZ Reposition Right Radius, External Approach (ICD-10-PCS; principal; 2019-03-18)
PROC: 2W3CX1Z Immobilization of Right Lower Arm using Splint (ICD-10-PCS; 2019-03-18)
DX: S52.501A Unspecified fracture of the lower end of right radius, initial encounter for closed fracture (principal); S52.251A Displaced comminuted fracture of shaft of ulna, right arm, initial encounter for closed fracture; S01.81XA Laceration without foreign body of other part of head, initial encounter; S02.2XXA Fracture of nasal bones, initial encounter for closed fracture; I10 Essential (primary) hypertension; E78.5 Hyperlipidemia, unspecified; I25.10 Atherosclerotic heart disease of native coronary artery without angina pectoris; Z95.0 Presence of cardiac pacemaker; E87.6 Hypokalemia; I48.91 Unspecified atrial fibrillation; Z79.01 Long term (current) use of anticoagulants; W01.0XXA Fall on same level from slipping, tripping and stumbling without subsequent striking against object, initial encounter; Y93.89 Activity, other specified; Y92.89 Other specified places as the place of occurrence of the external cause; Y99.8 Other external cause status
CPT/HCPCS: 36415; 70450-TC; 70486-TC; 71045-TC-FY; 71260-TC; 72125-TC; 73030-TC-RT-FY; 73070-TC-RT-FY; 73090-TC-RT-FY; 73110-TC-RT-FY; 73130-TC-RT-FY; 73560-TC-RT-FY; 74177-TC; 80053; 82550; 83605; 83735; 83880; 84443; 84484; 85025; 85610; 85730; 86850; 86900; 86901; 93005; 93010; 99283-25; J0131

== ENCOUNTER 2021-02-16 16:38 | Inpatient (IN) | payer OTHER ==
[2021-02-16 16:59] VITALS: BMI 25.8
[2021-02-16 19:01] LABS: BASO % 0.7 % (0-2.0); EOS % 0.5 % (0-4.5); HEMATOCRIT 41.5 % (32.4-45.2); HEMOGLOBIN 13.6 GM/dL (10.7-15.3); LYMPH % 12.1 % (8-40); MCH 29.8 pg (25.7-33.7); MCHC 32.9 g/dl (32.0-36.0); MEAN CELL VOLUME 90.5 fl (80-96); MEAN PLT VOLUME 8.4 fl (7.5-11.1); MONO % 6.4 % (3.8-10.2); NEUT % 80.3 % (42.8-82.8); PLATELET COUNT 221 10^3/uL (134-434); RBC 4.58 M/mm3 (3.60-5.2); RDW 17.2 % (11.6-15.6); WHITE BLOOD COUNT 6.4 K/mm3 (4.0-10.0)
[2021-02-16 19:06] LABS: INR 1.48 (0.83-1.09); PROTHROMBIN TIME (PATIENT) 17.7 SEC (9.7-13.0)
[2021-02-16 19:18] LABS: CHLORIDE 102 mmol/L (98-107); SODIUM 140 mmol/L (136-145)
[2021-02-16 19:20] LABS: CALCIUM 9.1 mg/dL (8.5-10.1)
[2021-02-16 19:21] LABS: ANION GAP 8 MMOL/L (8-16); BLOOD UREA NITROGEN 16.6 mg/dL (7-18); CO2 29 mmol/L (21-32); GLUCOSE,RANDOM 95 mg/dL (74-106)
[2021-02-16 19:24] LABS: CREATININE 1.2 mg/dL (0.55-1.3); SGOT/AST 45 U/L (15-37); SGPT/ALT 50 U/L (13-61)
[2021-02-16 19:26] LABS: BILIRUBIN,TOTAL 1.3 mg/dL (0.2-1)
[2021-02-16 19:27] LABS: ALK PHOS 107 U/L (45-117)
[2021-02-16] MEDS ORDERED: ASPIRIN 81 MG CHEWABLE TABLETS PO ONE (21:21)
[2021-02-16] MEDS ORDERED: ASPIRIN 81 MG CHEWABLE TABLETS ONE (21:30)
[2021-02-16] MEDS ORDERED: ATORVASTATIN CA 10 MG TABLET (FP) ONE (21:47)
[2021-02-16] MEDS ORDERED: FUROSEMIDE 40 MG TABLET (FP) ONE (21:47)
[2021-02-16] MEDS: FUROSEMIDE 40 MG TABLET (FP) PO SCH (21:57)
[2021-02-16] MEDS ORDERED: ATORVASTATIN CA 10 MG TABLET (FP) PO SCH (22:00)
[2021-02-17 03:03] VITALS: PULSE 60
[2021-02-17] MEDS ORDERED: LEVOTHYROXINE NA 50 MCG TABLET (FP) PO SCH (06:00)
[2021-02-17 06:49] LABS: EPI CELLS 3 /uL (0-25.1); HYALINE CASTS 0 /uL (0-3.1); PH,URINE 7.5 (5.0-8.0); URINE APPEARANCE CLEAR; URINE BACTERIA 5354 /uL (0-1359); URINE BILIRUBIN NEGATIVE (NEGATIVE); URINE COLOR YELLOW; URINE GLUCOSE (UA) NEGATIVE (NEGATIVE); URINE KETONE NEGATIVE (NEGATIVE); URINE LEUK ESTERASE NEGATIVE (NEGATIVE); URINE NITRITE POSITIVE (NEGATIVE); URINE PROTEIN NEGATIVE (NEGATIVE); URINE RBC 10 /uL (0-23.9); URINE UROBILINOGEN 0.2 mg/dL (0.2-1.0); URINE WBC 14 /uL (0-25.8)
[2021-02-17 08:08] LABS: HEMATOCRIT 40.6 % (32.4-45.2); HEMOGLOBIN 13.2 GM/dL (10.7-15.3); MCH 29.6 pg (25.7-33.7); MCHC 32.4 g/dl (32.0-36.0); MEAN CELL VOLUME 91.3 fl (80-96); MEAN PLT VOLUME 8.7 fl (7.5-11.1); PLATELET COUNT 206 10^3/uL (134-434); RBC 4.45 M/mm3 (3.60-5.2); RDW 17.2 % (11.6-15.6); WHITE BLOOD COUNT 4.7 K/mm3 (4.0-10.0)
[2021-02-17 08:37] LABS: CALCIUM 8.5 mg/dL (8.5-10.1)
[2021-02-17 08:38] LABS: ALBUMIN 3.4 g/dl (3.4-5.0); BLOOD UREA NITROGEN 13.2 mg/dL (7-18); MAGNESIUM 2.4 mg/dL (1.8-2.4)
[2021-02-17 08:41] LABS: BILIRUBIN,TOTAL 1.7 mg/dL (0.2-1); CREATININE 1.1 mg/dL (0.55-1.3)
[2021-02-17 08:42] LABS: PHOSPHOROUS 3.8 mg/dL (2.5-4.9); TOT PROT 6.2 g/dl (6.4-8.2)
[2021-02-17] MEDS ORDERED: POTASSIUM CHLORIDE TABS 20 MEQ TABLET.ER (FP) PO ONE (08:44)
[2021-02-17 09:37] VITALS: BP 135/61; TEMP 98.7
[2021-02-17] MEDS ORDERED: APIXABAN 5 MG TABLET PO SCH (10:00)
[2021-02-17] MEDS ORDERED: NITROGLYCERIN 0.4 MG/HOUR TD PATCH TD SCH (10:00)
[2021-02-17] MEDS ORDERED: AMIODARONE HCL 200 MG TABLET PO SCH (10:00)
[2021-02-17] MEDS: FUROSEMIDE 40 MG TABLET (FP) PO SCH (12:02)
== END 2021-02-17 15:42 | disposition home or self-care (01) | DRG 309 ==
LOC: JER 16:38 → JERBED 19:52 → OBSVTOIN 21:25 → J4W 23:52
PROVIDERS: ADMIT Hospitalist; ATTEND Internal Medicine
DX: I48.91 Unspecified atrial fibrillation (principal); I50.32 Chronic diastolic (congestive) heart failure; I25.10 Atherosclerotic heart disease of native coronary artery without angina pectoris; E78.5 Hyperlipidemia, unspecified; E11.9 Type 2 diabetes mellitus without complications; I25.2 Old myocardial infarction; I11.0 Hypertensive heart disease with heart failure; E03.9 Hypothyroidism, unspecified; M06.9 Rheumatoid arthritis, unspecified; R07.89 Other chest pain; I47.1 Supraventricular tachycardia; Z95.5 Presence of coronary angioplasty implant and graft; Z95.0 Presence of cardiac pacemaker
CPT/HCPCS: 36415; 71045-TC-FY; 80053; 81003; 82550; 83735; 84100; 84439; 84443; 84484; 85025; 85027; 85610; 85730; 93005; 93010; 93306-TC; 99285-25; C9803; G0378; U0003; U0005

== ENCOUNTER 2022-09-10 14:07 | Emergency (ER) | payer OTHER ==
[2022-09-10 14:47] VITALS: BMI 24.3
[2022-09-10] MEDS ORDERED: ACETAMINOPHEN 325 MG TABLET (FP) PO ONE (15:40)
[2022-09-10] MEDS ORDERED: ONDANSETRON *ODT* 4 MG TABLET SL ONE (15:41)
[2022-09-10] MEDS ORDERED: ACETAMINOPHEN 325 MG TABLET (FP) ONE (15:48)
[2022-09-10] MEDS ORDERED: ONDANSETRON *ODT* 4 MG TABLET ONE (15:48)
[2022-09-10 16:02] LABS: ALBUMIN 3.1 g/dl (3.4-5.0); BILIRUBIN,TOTAL 1.6 mg/dl (0.2-1); CALCIUM 7.8 mg/dl (8.5-10); CREATININE 1.3 mg/dl (0.55-1.3); TOT PROT 5.5 g/dl (6.4-8.2)
[2022-09-10 16:11] LABS: HEMATOCRIT 35.6 % (32.4-45.2); HEMOGLOBIN 11.6 G/dL (10.7-15.3); MCH 28.2 pg (25.7-33.7); MCHC 32.7 g/dl (32.0-36.0); MEAN CELL VOLUME 86.2 fl (80-96); MEAN PLT VOLUME 8.7 fl (7.5-11.1); PLATELET COUNT 181.7 10^3/uL (134-434); RBC 4.13 10^6/uL (3.60-5.2); RDW 16.1 % (11.6-15.6); WHITE BLOOD COUNT 8.5 10^3/uL (4.0-10.8)
[2022-09-10 16:13] LABS: INR 1.99 (0.83-1.09); PROTHROMBIN TIME (PATIENT) 23.1 SEC (9.7-13.0)
[2022-09-10 16:16] LABS: ACTIVATED PTT 33.7 SECONDS (25.2-36.5)
[2022-09-10 17:37] LABS: PLATELET ESTIMATE ADEQUATE
[2022-09-10 18:09] VITALS: BP 108/68; PULSE 65; RESP 20; TEMP 98.7
== END 2022-09-10 18:52 | disposition short-term general hospital (02) ==
LOC: FER 14:07
DX: S22.41XA Multiple fractures of ribs, right side, initial encounter for closed fracture (principal); S27.0XXA Traumatic pneumothorax, initial encounter; R55 Syncope and collapse; W19.XXXA Unspecified fall, initial encounter
CPT/HCPCS: 0241U-QW; 36415; 70450-TC; 71250-TC; 72125-TC; 80053; 81003; 81015; 84484; 85027; 85610; 85730; 87086; 93005; 99285-25; Q0162